=== PATIENT | female | born 1965 | race African-American/Black ===

== ENCOUNTER 2016-10-07 12:48 | Emergency (ER) | payer MEDICARE, MEDICAID ==
[~2016-10-07] VITALS: Ht 160 cm; Wt 82.0 kg
[~2016-10-07 12:48] MED LIST: ALBU0.08 NEB; ALBUAER3 INH; ATOR1TAB18 PO; ELVI1TAB3 PO; FAMO20TA2 PO; GABA800T PO; GLIP1TAB60 PO; PERC5TAB12 PO; POTA10CA PO; REST30CA PO; ROBA500T PO; SPIR25TA PO; TRAZ50TA12 PO; VORT1TAB3 PO; ZOFR4TAB PO
[2016-10-07 12:54] VITALS: BP 151/111; PULSE 115; RESP 16; TEMP 98.9; O2SAT 97
[2016-10-07] MEDS ORDERED: METF500T PO (13:17)
[2016-10-07 13:19] LABS: BLOOD, URINE LARGE (NEG); KETONE, URINE TRACE mg/dL (NEG); NITRITE,URINE NEG (NEG)
[2016-10-07 13:23] LABS: GLUCOSE,URINE 1000 OR GREATER mg/dL (NEG)
[2016-10-07 13:24] LABS: METHOD OF COLLECTION CLEAN CATCH; URINE COLOR YELLOW (YELLW/STRAW)
[2016-10-07 13:25] LABS: COMMENT (UR) CULTURE INDICATED; CULTURE IF INDICATED CULTURE INDICATED; RBC, URINE INNUM /hpf (0-3)
--- NOTE | 2016-10-07 13:26 | PD ---
HPI Chief Complaint: Complaint Time Seen by Provider: 13:08 Travel History International Travel<30 days: No Contact w/Intl Traveler<30days: No Traveled to known affect area: No History of Present Illness HPI This patient complains of urinary frequency and dysuria. She denies fever or flank pain. She does have HIV but takes her antivirals and states that is well controlled. She is worried about having a bladder infection. Denies other complaints. Duration 2 days PFSH Past Medical History Anemia: Yes (WITH BLOOD TRANSFUSIONS) Arthritis: No Asthma: Yes Autoimmune Disease: Yes (HIV) Anxiety: No Depression: Yes Heart Rhythm Problems: No Cancer: No Cardiovascular Problems: Yes High Cholesterol: No Chest Pain: No Congestive Heart Failure: No COPD: No Cerebrovascular Accident: No Diabetes: Yes Patient Takes Glucophage: Yes Diminished Hearing: No Endocrine: No Gastrointestinal Disorders: No GERD: No Genitourinary: No Headaches: No Hiatal Hernia: No Hypertension: Yes Immune Disorder: No Implanted Vascular Access Dvce: No Kidney Stones: No Musculoskeletal: No Neurologic: No Psychiatric: No Reproductive: Yes Respiratory: Yes (Asthma) Integumentary: Yes (SHINGLES) Immunizations Current: Yes Migraines: No Renal Failure: No Seizures: No Sickle Cell Disease: No Sleep Apnea: No Thyroid Disease: No Ulcer: No ?: Not LMP: TOTAL HYSTERECTOMY Menopausal: Yes : 5 Para: 5 Past Surgical History Abdominal Surgery: Yes (HYSTERECTOMY) AICD: No Arteriovenous Shunt: No Cardiac Surgery: No Cholecystectomy: Yes Ear Surgery: No Endocrine Surgery: No Eye Surgery: No Genitourinary Surgery: No Gynecologic Surgery: Yes (HYSTERECTOMY) Hysterectomy: Yes Insulin Pump: No Joint Replacement: No Neurologic Surgery: No Oral Surgery: No Pacemaker: No Thoracic Surgery: No Other Surgery: Yes (UTERINE FIBROID REPAIRED PER PT) Social History Alcohol Use: No Tobacco Use: No Substance Use: No Allergies-Medications (Allergen,Severity, Reaction): Coded Allergies: Iodine (Verified Allergy, Severe, 10/07/16) Penicillin (Verified Allergy, Severe, HIVES, 10/07/16) Shellfish (Verified Allergy, Severe, Anaphylaxis, 10/07/16) Aspirin (Verified Adverse Reaction, Intermediate, 10/07/16) Reported Meds & Prescriptions Reported Meds & Active Scripts Active Atorvastatin (Atorvastatin Calcium) 80 Mg Tab 80 Mg PO HS Zofran (Ondansetron HCl) 4 Mg Tab 4 Mg PO Q12HR PRN Potassium Chloride ER (Potassium Chloride) 10 Meq Cap 10 Meq PO DAILY Reported Metformin (Metformin HCl) 500 Mg Tab 500 Mg PO BIDPC With meals Trazodone (Trazodone HCl) 50 Mg Tab 50 Mg PO HS Restoril (Temazepam) 30 Mg Cap 30 Mg PO HS PRN Genvoya (Sjbhktstdpwx-Gjomimmmrs-Xvvysxjrzycj-Tenofvir) [phone] Mg Tab 1 Tab PO DAILY Review of Systems General / Constitutional: No: Fever HENT: No: Headaches Cardiovascular: No: Chest Pain or Discomfort Physical Exam Narrative GASTROINTESTINAL: Abdomen soft, non-tender, nondistended. Positive bowel sounds. No hepato-splenomegaly, or palpable masses. No guarding. NECK: Symmetrical appearance, midline trachea. No mass or crepitus. Thyroid without enlargement, tenderness, or mass. SKIN: Inspection shows no rash or ulcers. Palpation shows no induration or nodules. Throat clear Data Data Last Documented VS Vital Signs Date Time Temp Pulse Resp B/P Pulse Ox O2 Delivery O2 Flow Rate FiO2 10/07/16 12:54 98.9 115 16 151/111 97 Orders Urinalysis - C+S If Indicated (10/07/16 12:56) Urine Culture (10/07/16 13:10) Labs Laboratory Tests Test 10/07/16 13:10 Urine Collection Type CLEAN CATCH Urine Color YELLOW Urine Turbidity CLOUDY Urine pH 6.0 Urine Specific [place] GREATER THAN 1.035 Urine Protein 100 mg/dL Urine Glucose (UA) 1000 OR GREATER mg/dL Urine Ketones TRACE mg/dL Urine Occult Blood LARGE Urine Nitrite NEG Urine Bilirubin NEG Urine Leukocyte Esterase TRACE Urine RBC INNUM /hpf Urine WBC 9-14 /hpf Microscopic Urinalysis Comment CULTURE INDICATED MDM Medical Decision Making Medical Screen Exam Complete: Yes Emergency Medical Condition: Yes Medical Record Reviewed: Yes Differential Diagnosis Cystitis, UTI, pyelonephritis Narrative Course I have reviewed the patient's electronic medical record. Urinalysis shows mostly hematuria but also some inflammatory markers It will be cultured Given her immunocompromise I will error on the side of caution and prescribe her 5 days of antibiotics Recommend he follow-up with primary care and have them review the culture Diagnosis Primary Impression: Cystitis Additional Instructions: The patient was advised to follow up with their physician and return if they worsen. Med/Other Pt SpecificInfo: Prescription(s) given Scripts Sulfamethoxazole-Trimethoprim (Bactrim DS)800-160 Mg Tab1 Tab PO BID #10 TAB Ref 0 Prov:Omari Reyna MD 10/07/16 Disposition: 01 DISCHARGE HOME Condition: Stable Omari Reyna MD Oct 07, 2016 13:26
[2016-10-07] MEDS ORDERED: BACT800T5 PO (13:29)
[2016-10-17] MEDS ORDERED: METF500T PO (08:59)
[2016-10-23] MEDS ORDERED: FAMO40TA PO (08:39)
[2016-10-23] MEDS ORDERED: METF500T PO (08:39)
[2016-10-23] MEDS ORDERED: HYDR50TA94 PO (08:46)
[2016-11-01] MEDS ORDERED: ALBUAER3 INH (09:20)
[2016-11-01] MEDS ORDERED: FLUT50SP EACH NARE (09:20)
[2016-11-01] MEDS ORDERED: DOXY100C PO (09:20)
[2016-11-17] MEDS ORDERED: ATOR1TAB18 PO (12:44)
[2016-11-20] MEDS ORDERED: ZOFR4TAB PO (11:14)
[2016-12-27] MEDS ORDERED: AMBI5TAB PO (08:18)
[2016-12-27] MEDS ORDERED: BLOOD GLUCOSE M1 KIT (08:37)
[2017-03-08] MEDS ORDERED: ZITHTAB PO (09:47)
[2017-03-08] MEDS ORDERED: ATOR1TAB18 PO (09:47)
[2017-03-08] MEDS ORDERED: ALBUAER3 INH (09:47)
[2017-03-08] MEDS ORDERED: FLUT50SP EACH NARE ×2 (09:47→10:20)
[2017-03-08] MEDS ORDERED: FAMO40TA PO (09:47)
[2017-03-08] MEDS ORDERED: GLIP5TAB8 PO (09:47)
[2017-03-08] MEDS ORDERED: ZOFR4TAB PO (09:47)
[2017-03-08] MEDS ORDERED: HYDR50TA94 PO (09:47)
== END 2016-10-07 13:35 | disposition home or self-care (01) ==
LOC: PHED 12:48
DX: N30.90 Cystitis, unspecified without hematuria (principal); J45.909 Unspecified asthma, uncomplicated; E11.9 Type 2 diabetes mellitus without complications; I10 Essential (primary) hypertension; B96.20 Unspecified Escherichia coli [E. coli] as the cause of diseases classified elsewhere
CPT/HCPCS: 81001; 87077; 87086; 87186; 99283

== ENCOUNTER 2016-12-07 07:02 | Emergency (ER) | payer MEDICARE, MEDICAID ==
[~2016-12-07] VITALS: Ht 160 cm; Wt 80.0 kg
[~2016-12-07 07:02] MED LIST changes: -ALBU0.08 NEB; +DOXY100C PO; -FAMO20TA2 PO; +FAMO40TA PO; +FLUT50SP EACH NARE; -GABA800T PO; -GLIP1TAB60 PO; +HYDR50TA94 PO; +METF500T PO; -PERC5TAB12 PO; -ROBA500T PO; -SPIR25TA PO; -VORT1TAB3 PO
[2016-12-07 07:13] VITALS: BP 124/88; PULSE 105; RESP 18; TEMP 98.8; O2SAT 94
[2016-12-07] MEDS ORDERED: GLIP5TAB8 PO (07:18)
--- NOTE | 2016-12-07 07:42 | PD ---
HPI . Cough and congestion Chief Complaint: Cold / Flu Symptoms Time Seen by Provider: 07:31 Travel History International Travel<30 days: No Contact w/Intl Traveler<30days: No Traveled to known affect area: No History of Present Illness HPI Patient presents with a four-day history of cough and congestion. She denies fever or sputum production. She states that she also has nasal congestion and rhinorrhea. She has been treating herself with cough drops. She notes no relieving factors. She states that she has been around other people with a cold. Patient reports a history of bronchitis and HIV. She has an inhaler. She states that she has not used it today. [id number]: Chest DURATION: 4 days TIMING: Progressively worsening CONTEXT: History of bronchitis and HIV MODIFYING FACTORS: No exacerbating or relieving factors ASSOCIATED SYMPTOMS: No fever and no sputum. Positive nasal congestion and rhinorrhea. PFSH Past Medical History Anemia: Yes (WITH BLOOD TRANSFUSIONS) Arthritis: No Asthma: Yes Autoimmune Disease: Yes (HIV) Anxiety: No Depression: Yes Heart Rhythm Problems: No Cancer: No Cardiovascular Problems: Yes High Cholesterol: No Chest Pain: No Congestive Heart Failure: No COPD: No Cerebrovascular Accident: No Diabetes: Yes Patient Takes Glucophage: No Diminished Hearing: No Endocrine: No Gastrointestinal Disorders: No GERD: No Genitourinary: No Headaches: No Hiatal Hernia: No Heparin Induced Thrombocytopen: No Hypertension: Yes Immune Disorder: No Implanted Vascular Access Dvce: No Kidney Stones: No Musculoskeletal: No Neurologic: No Psychiatric: No Reproductive: Yes Respiratory: Yes (asthma) Integumentary: Yes (SHINGLES) Immunizations Current: Yes Migraines: No Renal Failure: No Seizures: No Sickle Cell Disease: No Sleep Apnea: No Thyroid Disease: No Ulcer: No Influenza Vaccination: No ?: Not Menopausal: Yes : 5 Para: 5 Past Surgical History Abdominal Surgery: Yes (HYSTERECTOMY) AICD: No Arteriovenous Shunt: No Cardiac Surgery: No Cholecystectomy: Yes Ear Surgery: No Endocrine Surgery: No Eye Surgery: No Genitourinary Surgery: No Gynecologic Surgery: Yes (HYSTERECTOMY) Hysterectomy: Yes Insulin Pump: No Joint Replacement: No Neurologic Surgery: No Oral Surgery: No Pacemaker: No Thoracic Surgery: No Other Surgery: Yes (UTERINE FIBROID REPAIRED PER PT) Social History Alcohol Use: No Tobacco Use: No Substance Use: No Allergies-Medications (Allergen,Severity, Reaction): Coded Allergies: Aspirin (Verified Allergy, Severe, Anaphylaxis, 12/07/16) Iodine (Verified Allergy, Severe, swelling, 12/07/16) Penicillin (Verified Allergy, Severe, HIVES, 12/07/16) Shellfish (Verified Allergy, Severe, Anaphylaxis, 12/07/16) Reported Meds & Prescriptions Reported Meds & Active Scripts Active Tussionex Pennkinetic Ext 12 HR Liq (Hydrocodone-Chlorpheniramine 12 HR Liq) 10- 8 Mg/5 Ml Susp 5 Ml PO Q12H PRN Zofran (Ondansetron HCl) 4 Mg Tab 4 Mg PO Q12HR PRN Atorvastatin (Atorvastatin Calcium) 80 Mg Tab 80 Mg PO HS Fluticasone Nasal [place] 50 Mcg/Act Naspr 50 Mcg EACH NARE BID 50 mcg/spray Proair Hfa 8.5 GM Inh (Albuterol Sulfate) 90 Mcg/Act Aer 2 Puff INH Q6H PRN 108 mcg/actuation Hydroxyzine HCl 50 Mg Tab 50 Mg PO HS Famotidine 40 Mg Tab 40 Mg PO HS Reported Glipizide 5 Mg Tab 5 Mg PO DAILY Take 30 minutes before a meal Trazodone (Trazodone HCl) 50 Mg Tab 50 Mg PO HS Restoril (Temazepam) 30 Mg Cap 30 Mg PO HS PRN Genvoya (Utskmdsqizos-Cvktyelzwg-Ohrqdolzgwsq-Tenofvir) [phone] Mg Tab 1 Tab PO DAILY Review of Systems Except as stated in HPI: all other systems reviewed are Neg General / Constitutional: No: Fever, Chills Eyes: No: Drainage, Redness HENT: Positive: Rhinorrhea, Congestion Respiratory: Positive: Cough Gastrointestinal: No: Nausea, Vomiting, Diarrhea Genitourinary: No: Urgency, Frequency, Dysuria Physical Exam Narrative GENERAL: Healthy-appearing woman who does have a persistent dry cough. SKIN: Warm and dry. HEAD: Atraumatic. Normocephalic. EYES: Pupils equal and round. No redness or discharge. ENT: Mucous membranes pink and moist. Edema of the nasal mucosa with clear rhinorrhea. NECK: Trachea midline. Neck is supple with no cervical lymphadenopathy. CARDIOVASCULAR: Regular rapid rate and normal rhythm. RESPIRATORY: No accessory muscle use. Lungs are clear with good air movement throughout. GASTROINTESTINAL: Abdomen soft, non-tender, nondistended. MUSCULOSKELETAL: No obvious deformities. No edema. NEUROLOGICAL: Awake and alert. No obvious cranial nerve deficits. Motor grossly within normal limits. Normal speech. PSYCHIATRIC: Appropriate mood and affect; insight and judgment normal. Data Data Last Documented VS Vital Signs Date Time Temp Pulse Resp B/P Pulse Ox O2 Delivery O2 Flow Rate FiO2 12/07/16 08:03 107 18 124/82 98 Room Air 12/07/16 07:13 98.8 Orders Complete Blood Count With Diff (12/07/16 07:31) Basic Metabolic Panel (Bmp) (12/07/16 07:31) B-Type Natriuretic Peptide (12/07/16 07:31) Influenzae A/B Antigen (12/07/16 07:31) Iv Access Insert/Monitor (12/07/16 07:31) Ecg Monitoring (12/07/16 07:31) Oximetry (12/07/16 07:31) Chest, Single Ap (12/07/16 07:31) Sodium Chloride 0.9% Flush (Ns Flush) (12/07/16 07:45) Chlorphenir-Hydrocodone Liq (Tussionex L (12/07/16 07:45) Labs Laboratory Tests Test 12/07/16 08:00 White Blood Count 6.3 TH/MM3 Red Blood Count 4.83 MIL/MM3 Hemoglobin 15.1 GM/DL Hematocrit 45.7 % Mean Corpuscular Volume 94.6 FL Mean Corpuscular Hemoglobin 31.2 PG Mean Corpuscular Hemoglobin 33.0 % Concent Red Cell Distribution Width 12.7 % Platelet Count 197 TH/MM3 Mean Platelet Volume 8.9 FL Neutrophils (%) (Auto) 69.3 % Lymphocytes (%) (Auto) 18.9 % Monocytes (%) (Auto) 10.6 % Eosinophils (%) (Auto) 0.7 % Basophils (%) (Auto) 0.5 % Neutrophils # (Auto) 4.4 TH/MM3 Lymphocytes # (Auto) 1.2 TH/MM3 Monocytes # (Auto) 0.7 TH/MM3 Eosinophils # (Auto) 0.0 TH/MM3 Basophils # (Auto) 0.0 TH/MM3 CBC Comment AUTO DIFF Differential Comment AUTO DIFF CONFIRMED Sodium Level 138 MEQ/L Potassium Level 3.8 MEQ/L Chloride Level 102 MEQ/L Carbon Dioxide Level 27.0 MEQ/L Anion Gap 9 MEQ/L Blood Urea Nitrogen 14 MG/DL Creatinine 1.20 MG/DL Estimat Glomerular Filtration 57 ML/MIN Rate Random Glucose 342 MG/DL Calcium Level 9.0 MG/DL B-Type Natriuretic Peptide 15 PG/ML MDM Medical Decision Making Medical Screen Exam Complete: Yes Emergency Medical Condition: Yes Medical Record Reviewed: Yes (patient has a history of bronchitis and HIV.) Differential Diagnosis Differential diagnosis of dyspnea includes but is not limited to congestive heart failure, pneumonia, wheezing, pneumothorax, pulmonary embolism Narrative Course Patient presents with cough and congestion. Her lungs sound clear. She is tachycardic. She does have a history of HIV. She will be evaluated for possible pneumonia or CHF. She does not sound like bronchitis. CBC & BMP Diagram 12/07/16 08:00 BNP is 15. Flu screen is negative. Chest X ray to my interpretation is negative for infiltrate. The chest x-ray has subsequently been read by the radiologist as negative. Diagnosis Primary Impression: Dry cough Referrals: Shahla Ramachandran 3 days Med/Other Pt SpecificInfo: Prescription(s) given Scripts Hydrocodone-Chlorpheniramine 12 HR Liq (Tussionex Pennkinetic Ext 12 HR Liq)10- 8 Mg/5 Ml Susp5 Ml PO Q12H PRN (COUGH AND/OR COLD SYMPTOMS) #60 ML Ref 0 Prov:Dimple Baird MD 12/07/16 Disposition: 01 DISCHARGE HOME Condition: Stable Dimple Baird MD Dec 07, 2016 07:42
[2016-12-07] MEDS ORDERED: SODIUM CHLORIDE 0.9% FLUSH 10 ML FLUSH IVF PRN (07:45)
[2016-12-07] MEDS ORDERED: CHLORPHENIR/HYDROCOD LIQUID 8 MG/10 MG/5 ML CUP PO ONE (07:45)
[2016-12-07 08:03] VITALS: BP 124/82; PULSE 107; RESP 18; O2SAT 98
[2016-12-07 08:06] LABS: AUTOMATED NEUTROPHIL # 4.4 TH/MM3 (1.8-7.7); BASOPHIL % 0.5 % (0.0-2.0); EOSINOPHIL % 0.7 % (0.0-4.0); HEMATOCRIT 45.7 % (35.0-46.0); LYMPH % 18.9 % (9.0-44.0); LYMPHOCYTE # 1.2 TH/MM3 (1.0-4.8); MEAN CELL VOLUME 94.6 FL (80.0-100.0); MEAN CORPUSCULAR HEMOGLOBIN 31.2 PG (27.0-34.0); MONO % 10.6 % (0.0-8.0); NEUT % 69.3 % (16.0-70.0); PLATELET COUNT 197 TH/MM3 (150-450); RED BLOOD COUNT 4.83 MIL/MM3 (4.00-5.30); RED CELL DISTRIBUTION WIDTH 12.7 % (11.6-17.2); WHITE BLOOD COUNT 6.3 TH/MM3 (4.0-11.0)
[2016-12-07 08:13] LABS: POTASSIUM 3.8 MEQ/L (3.5-5.1)
[2016-12-07 08:26] LABS: HEMO FLAGS AUTO DIFF
[2016-12-07] MEDS ORDERED: TUSSSUS2 PO (08:40)
[2016-12-07 08:46] LABS: SCAN/DIFF AUTO DIFF CONFIRMED
--- NOTE | 2016-12-07 08:52 | RADHPO ---
EXAM DATE/TIME: 12/07/2016 07:40 [facility] COMPARISON: CHEST SINGLE AP, January 05, 2013, 9:39. INDICATIONS : Cough, chest pain, and shortness of breath. MEDICAL HISTORY : None. SURGICAL HISTORY : None. ENCOUNTER: Initial ACUITY: 4 - 6 days PAIN SCORE: 4/10 LOCATION: Bilateral chest FINDINGS: A single view of the chest demonstrates the lungs to be symmetrically aerated without evidence of mas s, infiltrate or effusion. The cardiomediastinal contours are unremarkable. Osseous structures are intact. CONCLUSION: 1. No acute cardiopulmonary disease. Doc Harry MD on December 07, 2016 at 8:51 Board Certified Radiologist. This report was verified electronically.
[2016-12-07 09:11] VITALS: BP 139/88
[2016-12-27] MEDS ORDERED: AMBI5TAB PO (08:18)
[2016-12-27] MEDS ORDERED: BLOOD GLUCOSE M1 KIT (08:37)
[2017-03-08] MEDS ORDERED: ATOR1TAB18 PO (09:47)
[2017-03-08] MEDS ORDERED: FLUT50SP EACH NARE ×2 (09:47→10:20)
[2017-03-08] MEDS ORDERED: ZITHTAB PO (09:47)
[2017-03-08] MEDS ORDERED: GLIP5TAB8 PO (09:47)
[2017-03-08] MEDS ORDERED: ALBUAER3 INH (09:47)
[2017-03-08] MEDS ORDERED: ZOFR4TAB PO (09:47)
[2017-03-08] MEDS ORDERED: FAMO40TA PO (09:47)
[2017-03-08] MEDS ORDERED: HYDR50TA94 PO (09:47)
== END 2016-12-07 09:13 | disposition home or self-care (01) ==
LOC: PHED 07:02
DX: R05 Cough (principal); B20 Human immunodeficiency virus [HIV] disease; J45.909 Unspecified asthma, uncomplicated; I10 Essential (primary) hypertension; E11.9 Type 2 diabetes mellitus without complications; Z79.84 Long term (current) use of oral hypoglycemic drugs
CPT/HCPCS: 71010; 80048; 83880; 85025; 87804; 99283

== ENCOUNTER 2017-07-15 07:51 | Emergency (ER) | payer MEDICAID ==
[~2017-07-15] VITALS: Ht 160 cm; Wt 78.5 kg
[~2017-07-15 07:51] MED LIST changes: +AMBI5TAB PO; -ATOR1TAB18 PO; +ATOR80TA45 PO; +BLOOD GLUCOSE M1 KIT; +CETI10 PO; -DOXY100C PO; +GLIP5TAB8 PO; -METF500T PO; -POTA10CA PO; -REST30CA PO; +ZITHTAB PO
[2017-07-15 07:53] VITALS: BP 178/116; PULSE 111; RESP 18; TEMP 97.7; O2SAT 98
[2017-07-15] MEDS ORDERED: IBUP-232 PO (08:09)
[2017-07-15] MEDS ORDERED: VORT1TAB3 PO (08:09)
[2017-07-15] MEDS ORDERED: LISI-515 PO (08:10)
[2017-07-15] MEDS ORDERED: INSULIN HUMAN REGULAR 1,000 UNITS/10 ML VIAL IV PUSH ONE ×2 (08:15→11:00)
[2017-07-15] MEDS ORDERED: SODIUM CHLOR 0.9% 1000 ML INJ 1,000 ML IV ONE ×2 (08:15→08:45)
[2017-07-15] MEDS ORDERED: SODIUM CHLORIDE 0.9% FLUSH 10 ML FLUSH IVF PRN (08:15)
--- NOTE | 2017-07-15 08:22 | PD ---
HPI Chief Complaint: General Weakness Time Seen by Provider: 08:06 Travel History International Travel<30 days: No Contact w/Intl Traveler<30days: No Traveled to known affect area: No History of Present Illness HPI The patient was seen and examined in the presence of the nurse. This patient complains of generalized weakness. She has fatigue. She is urinating frequently and very thirsty. She is a diabetic and has been noncompliant with her medication for several days. Denies fever or vomiting or diarrhea. Symptoms severity is moderate. No alleviating factors. Symptoms exacerbated by noncompliance. Duration 3 days PFSH Past Medical History Anemia: Yes (WITH BLOOD TRANSFUSIONS) Arthritis: No Asthma: Yes Autoimmune Disease: Yes (HIV) Anxiety: No Depression: Yes Heart Rhythm Problems: No Cancer: No Cardiovascular Problems: Yes High Cholesterol: No Chest Pain: No Congestive Heart Failure: No COPD: No Cerebrovascular Accident: No Diabetes: Yes Diminished Hearing: No Endocrine: No Gastrointestinal Disorders: No GERD: No Genitourinary: No Headaches: No Hiatal Hernia: No Heparin Induced Thrombocytopen: No Hypertension: Yes Immune Disorder: No Implanted Vascular Access Dvce: No Kidney Stones: No Musculoskeletal: No Neurologic: No Psychiatric: No Reproductive: Yes Respiratory: Yes (asthma) Integumentary: Yes (SHINGLES) Immunizations Current: Yes Migraines: No Renal Failure: No Seizures: No Sickle Cell Disease: No Sleep Apnea: No Thyroid Disease: No Ulcer: No ?: Not Menopausal: Yes : 5 Para: 5 Past Surgical History Abdominal Surgery: Yes (HYSTERECTOMY) AICD: No Arteriovenous Shunt: No Cardiac Surgery: No Cholecystectomy: Yes Ear Surgery: No Endocrine Surgery: No Eye Surgery: No Genitourinary Surgery: No Gynecologic Surgery: Yes (HYSTERECTOMY) Hysterectomy: Yes Insulin Pump: No Joint Replacement: No Neurologic Surgery: No Oral Surgery: No Pacemaker: No Thoracic Surgery: No Other Surgery: Yes (UTERINE FIBROID REPAIRED PER PT) Social History Alcohol Use: No Tobacco Use: No Substance Use: No Allergies-Medications (Allergen,Severity, Reaction): Coded Allergies: aspirin (Unverified Allergy, Severe, Anaphylaxis, 07/15/17) iodine (Unverified Allergy, Severe, swelling, 07/15/17) penicillin G (Unverified Allergy, Severe, HIVES, 07/15/17) potassium iodide (Unverified Allergy, Severe, swelling, 07/15/17) povidone-iodine (Unverified Allergy, Severe, swelling, 07/15/17) shellfish derived (Unverified Allergy, Severe, Anaphylaxis, 07/15/17) sodium iodide (Unverified Allergy, Severe, swelling, 07/15/17) sodium iodide (Unverified Allergy, Severe, swelling, 07/15/17) Reported Meds & Prescriptions Reported Meds & Active Scripts Active Cetirizine (Cetirizine HCl) 10 Mg Tab 10 Mg PO DAILY Fluticasone Nasal [place] 50 Mcg/Act Naspr 50 Mcg EACH NARE BID 50 mcg/spray Glipizide 5 Mg Tab 5 Mg PO DAILY Take 30 minutes before a meal Zofran (Ondansetron HCl) 4 Mg Tab 4 Mg PO Q12HR PRN Atorvastatin (Atorvastatin Calcium) 80 Mg Tab 80 Mg PO HS Proair Hfa 8.5 GM Inh (Albuterol Sulfate) 90 Mcg/Act Aer 2 Puff INH Q6H PRN 108 mcg/actuation Hydroxyzine HCl 50 Mg Tab 50 Mg PO HS Famotidine 40 Mg Tab 40 Mg PO HS Reported Lisinopril 20 Mg Tab 20 Mg PO DAILY Trintellix (Vortioxetine) 20 Mg Tab 20 Mg PO DAILY Ibuprofen 600 Mg Tab 600 Mg PO BID Ambien (Zolpidem Tartrate) 5 Mg Tab 5 Mg PO HS PRN Trazodone (Trazodone HCl) 50 Mg Tab 150 Mg PO HS Genvoya (Mpeodzdzdftg-Axrvswdhfh-Rxgsptenhoau-Tenofvir) [phone] Mg Tab 1 Tab PO DAILY Review of Systems General / Constitutional: No: Fever Eyes: No: Visual changes HENT: No: Headaches Cardiovascular: No: Chest Pain or Discomfort Respiratory: No: Shortness of Breath Gastrointestinal: No: Abdominal Pain Genitourinary: Positive: Frequency, No: Dysuria Musculoskeletal: Positive: Weakness, No: Pain Skin: No Rash Neurologic: Positive: Weakness Psychiatric: No: Depression Endocrine: No: Polydipsia Hematologic/Lymphatic: No: Easy Bruising Physical Exam Narrative GENERAL: Well-nourished, well-developed patient in no apparent distress. SKIN: Focused skin assessment reveals no rash and nodules. Skin is Warm and dry. HEAD: Atraumatic. Normocephalic. EYES: Pupils equal and round. No scleral icterus. No injection or drainage. ENT: No nasal bleeding or discharge. Mucous membranes pink and moist. NECK: Trachea midline. No JVD. CARDIOVASCULAR: Regular rate and rhythm. No murmur appreciated. RESPIRATORY: No accessory muscle use. Clear to auscultation. Breath sounds equal bilaterally. GASTROINTESTINAL: Abdomen soft, non-tender, nondistended. Hepatic and splenic margins not palpable. MUSCULOSKELETAL: No obvious deformities. No clubbing. No cyanosis. No edema. NEUROLOGICAL: Awake and alert. No obvious cranial nerve deficits. Motor grossly within normal limits. Normal speech. PSYCHIATRIC: Appropriate mood and affect; insight and judgment normal. Data Data Last Documented VS Vital Signs Date Time Temp Pulse Resp B/P (MAP) Pulse Ox O2 Delivery O2 Flow Rate FiO2 07/15/17 12:44 97.9 81 16 140/87 (104) 99 Room Air Orders Orders Complete Blood Count With Diff (07/15/17 08:15) Comprehensive Metabolic Panel (07/15/17 08:15) Beta Hydroxybutyrate (Acetone) (07/15/17 08:15) Urinalysis - C+S If Indicated (07/15/17 08:15) Arterial Blood Gas (Abg) (07/15/17 08:15) Ecg Monitoring (07/15/17 08:15) Iv Access Insert/Monitor (07/15/17 08:15) Oximetry (07/15/17 08:15) Sodium Chlor 0.9% 1000 Ml Inj (Ns 1000 M (07/15/17 08:15) Sodium Chlor 0.9% 1000 Ml Inj (Ns 1000 M (07/15/17 08:45) Sodium Chloride 0.9% Flush (Ns Flush) (07/15/17 08:15) Insulin Human Regular Inj (Novolin R Inj (07/15/17 08:15) Vascular Access Team Consult/P PRN (07/15/17 08:43) Vascular Poc Ultrasound (07/15/17 ) Urine Culture (07/15/17 08:35) Clonidine (Catapres) (07/15/17 09:45) Insulin Human Regular Inj (Novolin R Inj (07/15/17 11:00) Insulin Human Regular Inj (Novolin R Inj (07/15/17 12:45) Ed Discharge Order (07/15/17 13:13) Labs Laboratory Tests Test 07/15/17 08:26 07/15/17 08:35 07/15/17 09:55 07/15/17 10:41 Blood Gas Puncture Site LT RADIAL Blood Gas Patient Temperature 98.6 Blood Gas HCO3 19 mmol/L Blood Gas Base Excess -5.5 mmol/L Blood Gas Oxygen Saturation 95 % Arterial Blood pH 7.36 Arterial Blood Partial Pressure CO2 34 mmHG Arterial Blood Partial Pressure O2 87 mmHG Arterial Blood Oxygen Content 22.5 Vol % Arterial Blood Carboxyhemoglobin 1.0 % Arterial Blood Methemoglobin 1.2 % Blood Gas Hemoglobin 16.9 G/DL Oxygen Delivery Device NONE Blood Gas Inspired Oxygen 21 % Urine Collection Type CLEAN CATCH Urine Color STRAW Urine Turbidity SLIGHT Urine pH 5.5 Urine Specific [place] 1.034 Urine Protein NEG mg/dL Urine Glucose (UA) 1000 OR GREATER mg/dL Urine Ketones TRACE mg/dL Urine Occult Blood TRACE Urine Nitrite NEG Urine Bilirubin NEG Urine Leukocyte Esterase NEG Urine RBC 0-3 /hpf Urine WBC 20-24 /hpf Urine WBC Clumps FEW Urine Squamous Epithelial Cells 6-8 /hpf Urine Amorphous Sediment FEW Urine Bacteria MOD /hpf Microscopic Urinalysis Comment CULTURE INDICATED Urine Collection Time 0835 White Blood Count 8.5 TH/MM3 Red Blood Count 5.24 MIL/MM3 Hemoglobin 16.8 GM/DL Hematocrit 49.8 % Mean Corpuscular Volume 95.1 FL Mean Corpuscular Hemoglobin 32.1 PG Mean Corpuscular Hemoglobin Concent 33.7 % Red Cell Distribution Width 13.1 % Platelet Count 147 TH/MM3 Mean Platelet Volume 9.7 FL Neutrophils (%) (Auto) 83.9 % Lymphocytes (%) (Auto) 8.8 % Monocytes (%) (Auto) 5.7 % Eosinophils (%) (Auto) 0.0 % Basophils (%) (Auto) 1.6 % Neutrophils # (Auto) 7.2 TH/MM3 Lymphocytes # (Auto) 0.7 TH/MM3 Monocytes # (Auto) 0.5 TH/MM3 Eosinophils # (Auto) 0.0 TH/MM3 Basophils # (Auto) 0.1 TH/MM3 CBC Comment AUTO DIFF Differential Comment AUTO DIFF CONFIRMED Blood Urea Nitrogen 32 MG/DL Creatinine 1.50 MG/DL Random Glucose 568 MG/DL Total Protein 7.7 GM/DL Albumin 3.9 GM/DL Calcium Level 9.1 MG/DL Alkaline Phosphatase 67 U/L Aspartate Amino Transf (AST/SGOT) 22 U/L Alanine Aminotransferase (ALT/SGPT) 60 U/L Total Bilirubin 0.5 MG/DL Sodium Level 140 MEQ/L Potassium Level 4.0 MEQ/L Chloride Level 107 MEQ/L Carbon Dioxide Level 21.1 MEQ/L Anion Gap 12 MEQ/L Estimat Glomerular Filtration Rate 44 ML/MIN B-Hydroxybutyrate 1.31 MMOL/L MDM Medical Decision Making Medical Screen Exam Complete: Yes Emergency Medical Condition: Yes Medical Record Reviewed: Yes Differential Diagnosis DKA, hyperglycemia, dehydration Narrative Course I have reviewed the patient's electronic medical record. IV placed I gave her dose of IV regular insulin and 2 L normal saline IV bolus Metabolic profile reveals sugar of 568 but normal bicarbonate ABG reveals pH of 7.36 CBC normal Urinalysis shows some pyuria and will be cultured. Given her immunocompromise I will prescribe some antibiotic I gave her second dose of regular insulin Sugars 390 on recheck She feels much better. I gave her 12 units subcutaneous to his regular insulin Discussed compliance with her medications. She has the medicine but just wasn' t taking it The patient was advised to follow up with their physician and return if they worsen. Patient is not in DKA and is stable for outpatient follow-up Diagnosis Primary Impression: Hyperglycemia due to type 2 diabetes mellitus Qualified Codes: E11.65 - Type 2 diabetes mellitus with hyperglycemia Additional Impressions: Generalized weakness Cystitis Additional Instructions: Remain compliant with diet and medication The patient was advised to follow up with their physician and return if they worsen. Med/Other Pt SpecificInfo: Other Disposition: 01 DISCHARGE HOME Condition: Stable Omari Reyna MD Jul 15, 2017 08:22
[2017-07-15 08:27] VITALS: BP 176/106; PULSE 115; RESP 18; O2SAT 99
[2017-07-15 08:35] LABS: BLOOD GAS BASE EXCESS -5.5 mmol/L (-2-2); BLOOD GAS HCO3 19 mmol/L (22-26); BLOOD GAS METHEMOGLOBIN 1.2 % (0-2); BLOOD GAS O2 HGB SATURATION 95 % (90-100); BLOOD GAS OXYGEN CONTENT 22.5 Vol % (12.0-20.0); BLOOD GAS PCO2 34 mmHG (38-42); BLOOD GAS PO2 87 mmHG (61-120); BLOOD GAS TOTAL HGB 16.9 G/DL (12.0-16.0); CRITICAL VALUE NO; DRAW SITE LT RADIAL; FIO2 21 %; NUMBER OF ARTERIAL PUNCTURES 1; STAT YES; TEMP CORR TO 98.6; ULNAR PULSE PRESENT
[2017-07-15 08:40] LABS: BLOOD, URINE TRACE (NEG); GLUCOSE,URINE 1000 OR GREATER mg/dL (NEG); KETONE, URINE TRACE mg/dL (NEG); NITRITE,URINE NEG (NEG); PH, URINE 5.5 (5.0-8.5)
[2017-07-15 08:42] LABS: METHOD OF COLLECTION CLEAN CATCH; URINE COLOR STRAW (YELLW/STRAW)
[2017-07-15 08:46] LABS: BACTERIA, URINE MOD /hpf; COMMENT (UR) CULTURE INDICATED; CULTURE IF INDICATED CULTURE INDICATED; RBC, URINE 0-3 /hpf (0-3)
[2017-07-15] MEDS ORDERED: cloNIDine HCL 0.2 MG TAB PO ONE (09:45)
[2017-07-15 10:03] VITALS: BP 196/86; PULSE 105; RESP 18; O2SAT 98
[2017-07-15 10:24] LABS: AUTOMATED NEUTROPHIL # 7.2 TH/MM3 (1.8-7.7); BASOPHIL # 0.1 TH/MM3 (0-0.2); BASOPHIL % 1.6 % (0.0-2.0); HEMATOCRIT 49.8 % (35.0-46.0); LYMPH % 8.8 % (9.0-44.0); LYMPHOCYTE # 0.7 TH/MM3 (1.0-4.8); MEAN CELL VOLUME 95.1 FL (80.0-100.0); MEAN CORPUSCULAR HEMOGLOBIN 32.1 PG (27.0-34.0); MEAN CORPUSCULAR HGB CONC 33.7 % (32.0-36.0); MONO % 5.7 % (0.0-8.0); NEUT % 83.9 % (16.0-70.0); PLATELET COUNT 147 TH/MM3 (150-450); RED BLOOD COUNT 5.24 MIL/MM3 (4.00-5.30); RED CELL DISTRIBUTION WIDTH 13.1 % (11.6-17.2); WHITE BLOOD COUNT 8.5 TH/MM3 (4.0-11.0)
[2017-07-15 10:27] LABS: HEMO FLAGS AUTO DIFF
[2017-07-15 10:53] VITALS: BP 176/109; PULSE 96; RESP 17; TEMP 98; O2SAT 99
[2017-07-15 11:00] LABS: CHLORIDE 107 MEQ/L (98-107); SODIUM (NA) 140 MEQ/L (136-145)
[2017-07-15 11:03] LABS: ANION GAP 12 MEQ/L (5-15); BICARBONATE 21.1 MEQ/L (21.0-32.0); BLOOD UREA NITROGEN 32 MG/DL (7-18)
[2017-07-15 11:06] LABS: ALT (GPT) 60 U/L (10-53); AST (GOT) 22 U/L (15-37); GLOMERULAR FILTRATION RATE 44 ML/MIN (>89)
[2017-07-15 11:08] LABS: TOTAL BILIRUBIN ADULT 0.5 MG/DL (0.2-1.0)
[2017-07-15 11:08] LABS: SCAN/DIFF AUTO DIFF CONFIRMED
[2017-07-15 11:15] LABS: ALKALINE PHOSPHATASE 67 U/L (45-117)
[2017-07-15 11:21] LABS: BETA-HYDROXYBUTYRATE 1.31 MMOL/L (0.00-0.39)
[2017-07-15 11:40] VITALS: BP 150/97; PULSE 76; RESP 15; O2SAT 99
[2017-07-15 12:44] VITALS: BP 140/87; PULSE 81; RESP 16; TEMP 97.9; O2SAT 99
[2017-07-15] MEDS ORDERED: INSULIN HUMAN REGULAR 1,000 UNITS/10 ML VIAL SQ ONE (12:45)
[2017-07-15] MEDS ORDERED: MACR100C2 PO (13:17)
[2017-07-24] MEDS ORDERED: ZOFR4TAB PO (09:31)
[2017-07-26] MEDS ORDERED: FLUT50SP EACH NARE ×2 (11:25→11:59)
[2017-07-26] MEDS ORDERED: LISI-515 PO ×2 (11:25→11:59)
[2017-07-26] MEDS ORDERED: GLIP5TAB8 PO (11:25)
[2017-07-26] MEDS ORDERED: HYDR50TA94 PO (11:25)
[2017-07-26] MEDS ORDERED: ZOFR4TAB PO (11:25)
[2017-07-26] MEDS ORDERED: ATOR80TA45 PO (11:25)
[2017-07-26] MEDS ORDERED: CETI10 PO (11:25)
[2017-07-26] MEDS ORDERED: ALBUAER3 INH (11:25)
[2017-07-26] MEDS ORDERED: FAMO40TA PO (11:25)
[2017-07-26] MEDS ORDERED: ADVA250A INH (11:28)
== END 2017-07-15 13:37 | disposition home or self-care (01) ==
LOC: PHED 07:51
DX: E11.65 Type 2 diabetes mellitus with hyperglycemia (principal); R53.1 Weakness; N30.90 Cystitis, unspecified without hematuria; R53.83 Other fatigue; I10 Essential (primary) hypertension; Z21 Asymptomatic human immunodeficiency virus [HIV] infection status; Z91.14 Patient's other noncompliance with medication regimen; Z79.84 Long term (current) use of oral hypoglycemic drugs; Z86.2 Personal history of diseases of the blood and blood-forming organs and certain disorders involving the immune mechanism; Z87.09 Personal history of other diseases of the respiratory system; Z86.59 Personal history of other mental and behavioral disorders; Z86.79 Personal history of other diseases of the circulatory system; Z86.69 Personal history of other diseases of the nervous system and sense organs; Z87.42 Personal history of other diseases of the female genital tract
CPT/HCPCS: 36600; 80053; 81001; 82010; 82805; 85025; 87086; 96361; 96372; 96374; 96376; 99285; J1815; J7030